=== PATIENT | male | born 1995 | race African-American/Black ===

== ENCOUNTER 2017-09-02 12:24 | Emergency (ER) | payer MEDICAID ==
[~2017-09-02] VITALS: Ht 177.8 cm; Wt 86.0 kg
[2017-09-02] MEDS ORDERED: HYDROCODONE/ACETAMINOPHEN 5/325MG TABLET PO ONE (17:45)
[2017-09-02] MEDS ORDERED: LIDOCAINE HCL 1%/EPI 1:200,000 30 ML VIAL MC ONE (17:45)
[2017-09-02] MEDS ORDERED: BACITRACIN ZINC OINT UDPKT TOP ONE (17:45)
[2017-09-02 18:48] VITALS: BP 128/88
== END 2017-09-02 20:48 | disposition home or self-care (01) ==
LOC: ER 16:22
DX: S01.81XA Laceration without foreign body of other part of head, initial encounter (principal); W22.09XA Striking against other stationary object, initial encounter; Y93.01 Activity, walking, marching and hiking; Y92.89 Other specified places as the place of occurrence of the external cause
CPT/HCPCS: 12011; 99283; Z7610

== ENCOUNTER 2017-09-10 20:31 | Emergency (ER) | payer MEDICAID ==
[~2017-09-10] VITALS: Ht 170.2 cm; Wt 85.0 kg
[2017-09-10] MEDS ORDERED: BACITRACIN ZINC OINT UDPKT TOP ONE (22:00)
[2017-09-10 22:05] VITALS: BP 122/68
== END 2017-09-10 22:20 | disposition home or self-care (01) ==
LOC: ER 20:31
DX: Z48.02 Encounter for removal of sutures (principal); F12.10 Cannabis abuse, uncomplicated
CPT/HCPCS: 99282; Z7610